=== PATIENT | male | born 1940 | race Caucasian/White ===

== ENCOUNTER 2017-03-31 06:44 | Inpatient (IN) ==
[2017-03-31] MEDS ORDERED: Lidocaine -MPF 1% 2 ML VIAL ONE (07:01)
[2017-03-31] MEDS ORDERED: CeFAZolin Pre 2,000 MG/100 ML 2,000 MG/100 ML BAG IVPB ONE (07:05)
[2017-03-31] MEDS ORDERED: Famotidine 20 MG/2 ML VIAL IVP ONE (07:10)
[2017-03-31] MEDS ORDERED: Gabapentin 300 MG CAPSULE PO ONE (07:11)
[2017-03-31] MEDS ORDERED: Ringers Solution, Lactated 1,000 ML IVC SCH (07:15)
[2017-03-31] MEDS ORDERED: Bupivacaine/Clonidine Syringe 1 EACH SYRINGE ONE ×2 (07:16→07:28)
--- NOTE | 2017-03-31 07:20 | Anesthesia Evaluation PreOp ---
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), HTN, Hyperlipidemia Pulmonary History: Denies Any Significant HX HELP DESK ASSISTANT History: Denies Any Significant HX Other Medical History: Denies Any Significant HX Anesthesia History: No Prior Anesthetic Complications Alcohol Use: none Drug use: none Medications and Allergies Aspirin [Lo-Dose Aspirin EC] 81 mg PO DAILY 03/31/17 [History] Diclofenac Sodium [Voltaren] 1 appl TP QID PRN 03/31/17 [History] Lisinopril [Zestril] 20 mg PO DAILY 03/31/17 [History] Metoprolol [Lopressor] 100 mg PO DAILY 03/31/17 [History] Tamsulosin [Flomax] 0.4 mg PO DAILY 03/31/17 [History] Allergies No Known Allergies Allergy (Verified 03/31/17 07:17) - Meds/Allergy Pre-op Review Medications Reviewed: Yes Allergies Reviewed: Yes Beta Blockers on Current Med List: Yes (Took Metoprolol today 629) Anesthesia Results - Labs Laboratory Tests 03/03/17 03/03/17 09:10 09:10 Hgb 13.6 Hct 40.0 Plt Count 207 Sodium 141 Potassium 4.0 BUN 26 Creatinine 1.28 H - Imaging EKG: report reviewed (SR) Anesthesia Exam O2 Sat Height 1.68 m Height 1.68 m Weight 79.379 kg Weight 79.379 kg Height: 5'6 Weight: 175 lbs NPO (# of Hours): MN Pain Scale: 0 - HEENT Pupil (Motor): Pupils equal, EOMI Mallampati: III Denture Type: Upper: Complete Oral Opening: Less than or equal to 3 - HELP DESK ASSISTANT LOC: Oriented HELP DESK ASSISTANT Motor: Normal RUE, Normal LUE, Normal RLE, Normal LLE, Normal Face HELP DESK ASSISTANT Sensory: Normal: RUE, LUE, RLE, LLE, Face - Cardiac Rhythm: Regular Murmur: None JVD: No Carotid Bruit: No - Pulmonary Breath Sounds: bilateral Clear Respiratory Effort: Symmetrical Anesthesia Assess/Plan ASA Score: 3 (CAD HTN) Modified [place] Scale for Level of Consciousness: Cooperative, oriented, and tranquil Anesthetic Plan: General Monitoring Plan: Standard Monitors Recovery Plan: PACU (Discussed GA, agrees to proceed)
[2017-03-31] MEDS ORDERED: *HR* FentaNYL (PF) 100 MCG/2 ML VIAL ONE (07:21)
[2017-03-31] MEDS ORDERED: *HR* Propofol 200 MG/20 ML VIAL IVP ONE (07:22)
[2017-03-31] MEDS ORDERED: Lidocaine -MPF 2% 2 ML VIAL ONE ×2 (07:22→07:53)
[2017-03-31] MEDS ORDERED: ROPIVACAINE HCL/PF 0.5% 30 ML VIAL ONE (07:41)
[2017-03-31] MEDS ORDERED: Propofol 500 MG/50 ML INFUS..BTL ONE ×4 (07:50→10:09)
--- NOTE | 2017-03-31 07:54 | History & Physical Report ---
Date of Encounter: 03/31/17 Time of Encounter: 07:54 24 Hour HP Update - Instructions Instructions: If the History and Physical is less than 30 days old and was completed prior to A.M. admission and or procedure and has NOT been updated on calendar day of procedure please complete this update prior to performing procedure. - Update Patient reports changes in Medical Condition: No Changes in examination, assessment, or condition: No Changes in Medication: No Preop tests/diagnostics Reviewed: Yes Surgery Remains Indicated: Yes Consent for Planned Operative Procedure(s) Verified: Yes - Pre-Operative Checklist Preoperative Checklist Indicated: Yes Prophylactic Antibiotic Ordered: Yes Home Medications Include Beta Arleen: No Beta Arleen Taken Today (Day of Surgery): No Beta Arleen Taken Yesterday (Day Prior to Surgery): No Is VTE Prophylaxis Indicated?: Yes
--- NOTE | 2017-03-31 08:09 | Anesthesia Procedures ---
Date of Encounter: 03/31/17 Time of Encounter: 07:20 Procedures: Anesthesia - Nerve Block Procedure Date: 03/31/17 Time: 07:50 Pre-op Diagnosis: Left Ankle Arthritis Surgical Procedure: Left Total Ankle Replacement Checklist: Correct Patient Identifier Correct side: Left Blood Thinner: No Monitor Applied: EKG, BP, Pulse Oximetry Supplemental Oxygen via Nasal Cannula (L/min): 2 Sedation: Fentanyl (mcg): 100 Indication: Post Op Analgesia Pre-op Neuro Deficits: No Block Type: Popliteal, Other (Adductor Canal Block) Catheter placed: No Sterile Technique: Yes Ultrasound used: Yes Anatomy identified: Yes Visual spread of Local: Yes Neuro Stimulation: No Blood on Needle Aspiration: No Smooth Injection of Local: Yes Pain with Injection of Local: No Prep: Chlorhexadine Needle: 22 x 50 mm Stimuplex, 21 x 100 mm Stimuplex Local: 0.25% Bupivicaine w/Clonidine 20 mcg/cc, Ropivacaine (O.5%) Volume (cc): 30cc Ropiv, 20cc Bupivaca Number of Attempts: 1 Complications: None/effective block Vitals: Vital Signs/O2 Sat/Glucose, Most Current Temp Pulse Resp BP Pulse Ox 03/31/17 07:24 97.8 F 66 18 171/89 97
[2017-03-31] MEDS ORDERED: Lacri-Lube 3.5 GM TUBE ONE (08:13)
[2017-03-31] MEDS ORDERED: Ketorolac 30 MG/ML VIAL ONE (10:40)
[2017-03-31] MEDS ORDERED: *HR* OxyCODONE/APAP 10/325 TABLET PO PRN ×2 (11:35→13:25)
[2017-03-31] MEDS ORDERED: Acetaminophen IV 500 MG/50 ML INFUS..BTL IVPB ONE (11:35)
--- NOTE | 2017-03-31 12:47 | Anesthesia Evaluation Post Op ---
Date of Encounter: 03/31/17 Time of Encounter: 12:30 - Vital Signs Vital Signs: Vital Signs/O2 Sat/Glucose, Most Current Temp Pulse Resp BP Pulse Ox 03/31/17 12:23 97 03/31/17 12:16 97.5 F L 52 12 167/86 97 03/31/17 12:07 97.8 F 52 14 148/95 99 03/31/17 11:57 97.2 F L 53 14 165/96 99 03/31/17 11:47 59 14 146/88 98 03/31/17 11:37 62 14 155/90 98 03/31/17 11:27 97.8 F 65 14 165/97 96 - Lungs Lungs: Clear Ascult./Percussion - Airway Airway: Non-obstructed - Cardiovascular Regular Rate - Mental Status Mental Status: Alert & Oriented, Answers Appropriately - Pain Pain Scale: 0 - Nausea Vomiting Nausea Vomiting: Not Present - Hydration Hydration: Ice chips - Discharge PostOp Status: Transfer Patient to floor
[2017-03-31] MEDS: *HR* Rivaroxaban 10 MG TABLET PO SCH (13:33)
[2017-03-31] MEDS: Lisinopril 20 MG TABLET PO SCH (13:33)
--- NOTE | 2017-03-31 13:44 | Operative Note ---
Date of procedure: 03/31/17 Pre-op diagnosis: Ankle arthritis, exostosis first metatarsal cuneiform joint, left Post-op diagnosis: same Procedure: Total ankle replacement, resection of exostosis from first metatarsal cuneiform joint. Implants: SuperTruper total ankle implant, Vicryl, skin hi Complications: None Anesthesia: EVA Surgeon: Sg Elise Estimated blood loss (cc): 20 Tourniquet Time (Minutes): 120 Condition: stable Disposition: floor Procedure in Detail: Anesthesia administered a popliteal block prior to the surgery. The patient was administered IV antibiotics. The patient was transported to the operative room and placed on operating table. Following anesthesia the extremity was scrubbed prepped and draped in the usual aseptic fashion. A timeout was performed. The lower extremity was raised to 60 degrees for hemostasis and exsanguinated utilizing an Esmarch bandage. The pneumatic tourniquet was inflated. The leg was lowered to the table. An incision was made and deepened through subcutaneous tissue with care taken to identify and retract all vital neurovascular structures. The incision was made along the lateral aspect of the tibialis anterior tendon. The ankle joint was identified and dissected appropriately. The tibial cutting block was positioned and confirmed utilizing fluoroscopy. The cutting block was utilized to make cuts in the tibia. After the tibial bone was removed the site was irrigated with saline and the talar guide block was inserted on the talus. Appropriate cuts were made in the talus. Position was confirmed utilizing fluoroscopy. After the appropriate cuts were made and adequate position was confirmed on fluoroscopy the gutters were cleaned appropriately and the site was pulse irrigated. The tibial and talar portions of the implant were inserted as well as the poly-portion. Bone cement was utilized on both the talar and tibial components. Appropriate positioning was confirmed with fluoroscopy and adequate dorsiflexion and plantar flexion were confirmed. Betadine was utilized within the incision site.The incision site was irrigated with copious amounts of normal saline and closed in a layered fashion. A small incision was made at the dorsal medial aspect of the first metatarsal cuneiform joint near the large exostosis. It was determined intraoperatively that this would likely be, and irritation and the exostosis was resected. After adequate resection of the exostosis the site was irrigated with copious amounts of normal saline and closed in a layered fashion. A dry sterile dressing was applied. The pneumatic tourniquet was deflated and a hyperemic response was noted to all digits. The patient was placed in a posterior splint with a Cryo/Cuff. The patient tolerated the procedure and anesthesia well and was transported to the recovery room with vital signs stable and vascular status intact to both feet. The patient will be admitted as an outpatient in a bed to be monitored postoperatively prior to returning home tomorrow. The patient will keep the dressings clean, dry, intact until the follow-up appointment in 1-2 weeks. The patient will remain nonweightbearing.
[2017-03-31] MEDS: Metoprolol XL (24 HR) Succ 50 MG TAB.ER.24H PO SCH (14:41)
[2017-03-31] MEDS: ceFAZolin 1,000 MG in D5% in Water (Mini-Bag+) 100 ML IVPB SCH ×2 (16:57→23:22)
[2017-04-01] MEDS: *HR* Rivaroxaban 10 MG TABLET PO SCH (08:34)
[2017-04-01] MEDS: Lisinopril 20 MG TABLET PO SCH (08:34)
[2017-04-01] MEDS: Metoprolol XL (24 HR) Succ 50 MG TAB.ER.24H PO SCH (08:35)
[2017-04-01] MEDS ORDERED: *HR* Rivaroxaban 10 MG TABLET PO SCH ×2 (09:00→12:45)
[2017-04-01] MEDS ORDERED: Lisinopril 20 MG TABLET PO SCH ×2 (09:00→12:44)
[2017-04-01] MEDS ORDERED: Metoprolol XL (24 HR) Succ 50 MG TAB.ER.24H PO SCH ×2 (09:00→12:45)
--- NOTE | 2017-04-01 11:53 | Discharge Summary ---
Date of Encounter: 04/02/17 Time of Encounter: 11:30 - Discharge Diagnosis (1) Post-operative state Priority: Primary Status: Acute - Discharge Medications Prescriptions: cephALEXin [Keflex] 500 mg PO BID 7 Days Rivaroxaban [Xarelto] 10 mg PO DAILY #21 tablet Tramadol HCl [Ultram] 50 mg PO QID PRN #28 tab PRN Reason: Pain Home Medications: Aspirin [Lo-Dose Aspirin EC] 81 mg PO DAILY 03/31/17 [History] Lisinopril [Zestril] 20 mg PO DAILY 03/31/17 [History] Metoprolol Succinate 100 mg PO DAILY 03/31/17 [History] Tamsulosin [Flomax] 0.4 mg PO DAILY 03/31/17 [History] Rivaroxaban [Xarelto] 10 mg PO DAILY #21 tablet 04/01/17 [Rx] Tramadol HCl [Ultram] 50 mg PO QID PRN #28 tab 04/01/17 [Rx] cephALEXin [Keflex] 500 mg PO BID 7 Days 04/01/17 [Rx] Allergies/Adverse Reactions: Allergies No Known Allergies Allergy (Verified 03/31/17 09:29) Procedures and tests throughout hospitalization: Fluoroscopy 03/31/17 00:00 IMPRESSION: Intraprocedural fluoroscopic spot images as above. See separate procedure report for more information. D/ / 03/31/2017 12:43:29 Helio Hurst MD / brandy Interpreting Provider: Helio Hurst MD Ankle X-Ray 03/31/17 11:41 IMPRESSION: 1. Status post tibiotalar arthroplasty. Minimal anterior subluxation of the foot. No dislocation or fracture. D/ / Richard Kuhn MD / Richard Kuhn MD Interpreting Provider: Richard Kuhn MD - Impressions ITS Impressions Ankle X-Ray 03/31/17 00:00 IMPRESSION: Intraprocedural fluoroscopic spot images as above. See separate procedure report for more information. D/ / 03/31/2017 12:43:29 Helio Hurst MD / brandy Interpreting Provider: Helio Hurst MD Fluoroscopy 03/31/17 00:00 IMPRESSION: Intraprocedural fluoroscopic spot images as above. See separate procedure report for more information. D/ / 03/31/2017 12:43:29 Helio Hurst MD / brandy Interpreting Provider: Helio Hurst MD Ankle X-Ray 03/31/17 11:41 IMPRESSION: 1. Status post tibiotalar arthroplasty. Minimal anterior subluxation of the foot. No dislocation or fracture. D/ / Richard Kuhn MD / Richard Kuhn MD Interpreting Provider: Richard Kuhn MD Date of admission: 03/31/17 12:10 Primary care physician: Domingo Roque MD Consults: 03/31/17 12:45 Consult to Physical Therapy [CONS] Routine Comment: Evaluate, develop and implement POC Reason for Consult: Left total ankle replacement 03/31/17 12:46 Consult to Occupational Therapy [CONS] Routine Comment: Evaluate, develop and implement POC Reason for Consult: left total ankle replacement 04/01/17 10:31 Consult to Form Block Maker [CONS] Routine Reason for SW Consult: Disharge planning, home therapy Discharging clinician: Barrett Kelly Anticipated date of discharge: 04/01/17 - Patient Status Disposition: Home Health Service Condition: Fair Functional capacity at discharge: uses cane/walker (Nonweight bearing left lower extremity) Overall status at discharge: patient is progressing back to baseline - Discharge Instructions Follow Up With: Sg Elise DPM [Partnered Physician] - 04/06/17 8:15 am (F/u with in 7 days of discharge from the hospital. ) Domingo Roque MD [Primary Care Provider] - Additional Instructions: 1. Discontinue Aspirin while taking Xarelto and resume Aspirin after taking Xarelto. 2. Remain non weight bearing to LLE. 3. Continue use of Cryo cuff to LLE. 4. Keep LLE elevated. 5. F/u in Podiatry clinic with in 7 days of discharge from hospital. Contact clinic sooner if increased pain, fever, chills, bleeding, nausea, vomiting. Go to Emergency Department if chest pain, sob, calf pain, toes become cold, blue, numb, tingling. 6. PT/OT to be set up for home. 7. Prescription for two wheeled walker faxed to [facility] from Podiatry clinic. - Diet and Activity Activity: as per physical therapy (NWB to LLE) Diet: advance to your usual diet - Hospital Course Hospital course: Mr. Wiggins is a 76 year old male s/p left total ankle replacement, resection of exostosis from first metatarsal cuneiform joint by Dr. Elise on 03/31/17. Physical therapy and occupational therapy evaluated patient and will continue therapy at home. Posterior splint will remain in place until follow up appointment with Dr. Elise. herbarium worker was consulted for discharge planning. Dr. Elise spoke with hospitalist in regards to heart rate of 105. Patient is asymptomatic. Patient denied any cp, sob, calf pain, n/v/d. No c/o palpitations or dizziness. Recommend patient f/u with PCP after discharge from the hospital and to go to ED if any cp, palpitations, calf pain, or sob. Patient states he does not like to take pain medication. He rates pain currently at a 5 out of 10. Patient will be discharged home with Keflex for 7 days. Patient states he does not want any narcotic pain pills due to the way they make him feel. Patient sent home with a script for Ultram and Xarelto. Patient instructed to stop ASA while taking Xarelto and resume ASA after Xarelto is completed. Patient will remain nonweight bearing to LLE. Patient educated on circulation checks. Prescription faxed to [facility] in [place] for a two wheeled walker. - Time Spent with Patient Total time spent providing and/or coordinating discharge services: - VTE Documentation of Mechanical Device: Intermittent pneumatic compression device
[2017-04-01 14:00] VITALS: BP 168/87
--- NOTE | 2017-04-01 14:26 | Physician Discharge Referral ---
Home Health/Hosp Referral Info Transfer to: Home Health Attending Provider: sessions Provider in Charge Post Discharge: PCP - Diagnosis (1) Post-operative state Status: Acute - Respiratory Orders Smoking Cessation: Smoking cessation has been advised. For more information, call the [place] Tobacco Quit Line at 0-027-VUVC-NOW. - Dressing/Wound Care Site: keep dressings intact until follow up. - Diet/Nutrition Diet/Nutrition Orders: Regular - Activity Activity: List: nonweightbearing left foot - Services Needed Following services are medically necessary services: Nursing, Home Health Aide, Physical Therapy, Occupational Therapy - Transfer Medications Prescriptions: cephALEXin [Keflex] 500 mg PO BID 7 Days Rivaroxaban [Xarelto] 10 mg PO DAILY #21 tablet Tramadol HCl [Ultram] 50 mg PO QID PRN #28 tab PRN Reason: Pain Home Medications: Aspirin [Lo-Dose Aspirin EC] 81 mg PO DAILY 03/31/17 [History] Lisinopril [Zestril] 20 mg PO DAILY 03/31/17 [History] Metoprolol Succinate 100 mg PO DAILY 03/31/17 [History] Tamsulosin [Flomax] 0.4 mg PO DAILY 03/31/17 [History] Rivaroxaban [Xarelto] 10 mg PO DAILY #21 tablet 04/01/17 [Rx] Tramadol HCl [Ultram] 50 mg PO QID PRN #28 tab 04/01/17 [Rx] cephALEXin [Keflex] 500 mg PO BID 7 Days 04/01/17 [Rx] Allergies/Adverse Reactions: Allergies No Known Allergies Allergy (Verified 03/31/17 09:29) Certification: Further, I certify that my clinical findings support that this patient is homebound (i.e. absences from home require considerable and taxing effort and are for medical reasons or rastafarian services or infrequently or short duration when for other reasons) because: Homebound Reason: Post-surgery restriction and or conditions limit ability to leave home Attestation: My signature below is to certify that this patient is under my care and that I, or nurse practitioner, or a physician's music library assistant working with me, has a face-to -face encounter with this patient.
== END 2017-04-01 15:30 | disposition home health service (06) | DRG 470 ==
LOC: SAMDAY 06:44 → 3NENU 12:10
PROVIDERS: ADMIT Podiatrist Foot & Ankle Surgery; ATTEND Podiatrist Foot & Ankle Surgery